=== PATIENT | female | born 1990 | race Caucasian/White ===

== ENCOUNTER 2016-11-08 11:02 | Day surgery (SDC) | payer OTHER ==
[~2016-11-08] VITALS: Ht 170.2 cm; Wt 106.5 kg
[~2016-11-08 11:02] MED LIST: 0.9% Sodium Chloride 1,000 ML IV PRN; CLON0.2T PO; DIAM PO; ESCI5SOL PO; LEVO100T6 PO; NORE-101 PO; OMEP20CA11 PO; SACC250C PO; Sodium Chloride LOK Flush 10 mL Syringe IV PRN; fentaNYL-PF 50 mCg/mL 2 mL Inj IVPUSH PRN
[2016-11-08 11:54] VITALS: BP 130/95; PULSE 85; RESP 14; O2SAT 100
--- NOTE | 2016-11-08 12:48 | PCM.ENDEGD ---
EGD Date of Service: Nov 08, 2016 Physician Francisco Amaral MD Indication for Procedure Abdominal pain and diarrhea Post Procedure Dx & Findings: Normal upper GI Procedure Esophagogastroduodenoscopy PROCEDURE IN DETAIL: The patient was placed in left lateral decubitus position. Bite block was placed. Scope lubricated, placed in posterior pharynx, passed through the cricopharyngeus and esophagus, slowly advanced the entire length of the gastric pouch, pylorus was identified, scope passed through the pylorus and descending portion of duodenum, withdrawn in the antrum, retroflexed upon itself for view of fundus and cardia. Scope was then withdrawn through the oropharynx. Esophagus was unremarkable with normal-appearing Z line. Stomach including cardia fundus body antrum and pylorus was also normal without any ulcers masses or erosions. Retroflexion was done. Stomach was easily inflatable and deflated using air. Duodenum appeared normal with normal villous structure and folds. Random biopsy 6 obtained of the distal and proximal duodenum for celiac disease. Impression Normal upper GI Recommendation Await biopsy for celiac disease. Presedation Assessment Risks and Benefits Informed consent was obtained from the patient after all risks and benefits including but not limited to drug reaction, infection, pain, bleeding, perforation, as well as alternatives were discussed. Patient monitoring Continuous pulse oximetry, cardiac monitoring, blood pressure monitoring, IV access, and oxygen at 2L per nasal cannula. Periprocedural Fentanyl: Fentanyl 175mcg Incrementally Midazolam: Midazolam 7mg Incrementally Complications There were no periprocedural complications identified. Post Procedure Plan Post Procedure Recommendations 1. Restrict activities today. 2. Resume normal activities in the morning. 3. Resume medications. 4. GERD behavioral modification: - Avoid fatty, acidic, spicy, large meals - Do not lie down after meals - Do not eat or drink anything for at least 2 1/2 hours before going to bed at night - Discontinue tobacco and alcohol - Decrease or avoid caffeine - Avoid chocolate and mints - Decrease weight - Avoid aspirin and non steroidal anti-inflammatory agents (NSAID) such as Aleve, Advil, Mobic, Naproxen, Ibuprofen, etc 5. Add proton pump inhibitor. Take 30 minutes before 1st meal of the day. 6. Patient informed of normal post procedure side effects as bloating, drowsiness, blood streaking in the stool 7. If gastric biopsy reveal H.pylori, continue with appropriate treatment 8. If small bowel biopsy reveals celiac, continue with appropriate treatment 9. Please don't hesitate to call me with any questions Francisco Amaral MD Nov 08, 2016 12:48
--- NOTE | 2016-11-08 13:07 | PCM.ENDCOL ---
Colonoscopy Date of Service: Nov 08, 2016 Physician Francisco Amaral MD Indication for Procedure Diarrhea abdominal pain Post Procedure Dx & Findings: Hemorrhoids polyp Procedure Colonoscopy Prep adequate Withdrawal 9 minutes PROCEDURE IN DETAIL: After unremarkable rectal examination Olympus video colonoscope was inserted patient's anal canal and advanced to the cecum. Landmarks were identified including the ileocecal valve and appendiceal orifice. Scope further advanced to the terminal ileum which showed normal villous structures without any ulcers or masses. We advanced 8 cm. The mucosa of the cecum, ascending, transverse, descending, sigmoid, rectal mucosa lined with whitish, pink, smooth, glistening, normal-appearing mucosa, normal fine branching, underlying vascularity, normal haustra. The patient tolerated procedure and was transported to observation area. Random biopsies were obtained from the cecum to the rectum using cold forceps. In the sigmoid colon, there was a 1 mm polyp which was resected completely using cold forceps. In the rectum retroflexion was done which showed mild hemorrhoids. Anal canal was inspected carefully and the way out and hemorrhoids noted. Impression Normal TI Normal colon Polyp status post complete removal Hemorrhoids Recommendation Repeat colonoscopy in 5 years Presedation Assessment Risks and Benefits Informed consent was obtained from the patient after all risks and benefits including but not limited to drug reaction, infection, pain, bleeding, perforation, as well as alternatives were discussed. Patient monitoring Continuous pulse oximetry, cardiac monitoring, blood pressure monitoring, IV access, and oxygen at 2L per nasal cannula. Periprocedural Fentanyl: Fentanyl 25mcg Midazolam: Midazolam 3mg Incrementally Complications There were no periprocedural complications identified. Post Procedure Plan Post Procedure Recommendations 1. Restrict activities today. 2. Resume normal activities in the morning. 3. Resume medications. 4. Patient informed of normal post procedure side effects as bloating, drowsiness, blood streaking in the stool. 5. average risk CRCS. If colon polyps come back as: -Hyperplastic- can repeat colonoscopy in 10 years -Tubular adenoma- repeat colonoscopy in 5 years -Tubulovillous/villous adenoma- repeat colonoscopy in 3 years -If any dysplasia- return to clinic as soon as possible 6. Please don't hesitate to call me with any questions. Francisco Amaral MD Nov 08, 2016 13:07
[2016-11-08 13:09] VITALS: BP 148/84; PULSE 94; RESP 14; O2SAT 100
[2016-11-08 13:21] VITALS: BP 137/67; PULSE 93; RESP 14; O2SAT 99
[2016-11-08 13:26] VITALS: BP 127/92; PULSE 97; RESP 16; O2SAT 100
--- NOTE | 2016-11-09 12:16 | PATH ---
SURGICAL PATHOLOGY Attending Physician:Francisco Amaral M.D. CASE STATUS: Signed Out PATIENT NAME: MILAGROS HARRISON PID: [id number] : 1990 DATE COLLECTED:11/08/2016 20:31 SPECIMEN: 1: Duodenum, Biopsy 2: Colon, Biopsy 3: Colon, Biopsy CLINICAL HISTORY: 1. DUODENAL BIOPSY 2. RANDOM COLON BIOPSIES 3. SIGMOID COLON POLYP FINAL DIAGNOSIS: 1. Duodenal Biopsy: Changes consistent with chronic duodenitis with focal areas of foveolar metaplasia. Negative for evidence of celiac disease. Negative for dysplasia and malignancy. 2. Random Colon Biopsies: Fragments of normal appearing colon mucosa with multifocal areas of mucosal lymphoid hyperplasia. Negative for significant architectural distortion. Negative for significant inflammation, dysplasia and malignancy. 3. Sigmoid Colon Polyp: Hyperplastic polyp. ICD10 K63.5 GROSS DESCRIPTION: The specimen is received in three formalin filled containers labeled with the patient's name. 1. The specimen is sublabeled "duodenal" and consists of 3 portions of tissue which aggregate to 0.3 x 0.3 x 0.2 CM. The specimen is entirely submitted in cassette 1A. 2. The specimen is sublabeled "random colon" and consists of multiple portions of tissue which aggregate to 0.5 x 0.5 x 0.3 CM. The specimen is entirely submitted in cassette 2A. 3. The specimen is sublabeled "sigmoid colon polyp" and consists of a 0.5 x 0.3 x 0.2 CM portion of tissue which is entirely submitted in cassette 3A. 11/08/2016 [facility] ICD-9 CODES: CPT CODES: 1: 72657 2: 91432 3: 56810 Electronically Signed Out Kev Ball MD [facility] [address], [place] [address] Technical component performed at [facility], [facility] [address], [place], [address]
[2017-02-22] MEDS ORDERED: OMEP20CA11 PO (15:07)
[2017-02-22] MEDS ORDERED: LEVO100T6 PO (15:07)
[2017-02-22] MEDS ORDERED: NORE-101 PO (15:07)
[2017-02-22] MEDS ORDERED: DIAM PO (15:07)
[2017-02-22] MEDS ORDERED: CHOL200025 PO (15:07)
== END 2016-11-08 23:59 | disposition home or self-care (01) ==
LOC: END 11:02
PROVIDERS: ATTEND Internal Medicine
DX: K63.5 Polyp of colon (principal); R19.7 Diarrhea, unspecified; R10.9 Unspecified abdominal pain; K64.9 Unspecified hemorrhoids; K29.80 Duodenitis without bleeding; E89.0 Postprocedural hypothyroidism; G93.2 Benign intracranial hypertension
CPT/HCPCS: 43239; 45380; 88305; 99153; G0500; J2250; J7030

== ENCOUNTER 2017-02-24 06:18 | Day surgery (SDC) | payer OTHER ==
[~2017-02-24] VITALS: Ht 170.2 cm; Wt 110.4 kg
[2017-02-24] VITALS (12 sets, daily range): BP systolic 135–152; BP diastolic 81–100; PULSE 72–105; RESP 16–37; O2SAT 97–100
[~2017-02-24 06:18] MED LIST changes: -0.9% Sodium Chloride 1,000 ML IV PRN; +CHOL200025 PO; -CLON0.2T PO; -ESCI5SOL PO; -SACC250C PO; -Sodium Chloride LOK Flush 10 mL Syringe IV PRN; -fentaNYL-PF 50 mCg/mL 2 mL Inj IVPUSH PRN
[2017-02-24] MEDS ORDERED: fentaNYL-PF 50 mCg/mL 2 mL Inj ONE (06:19)
[2017-02-24] MEDS ORDERED: Glycopyrrolate 0.2 MG/ML 1mL Inj ONE (06:19)
[2017-02-24] MEDS ORDERED: Dexamethasone 4 mg/mL Inj ONE (06:19)
[2017-02-24] MEDS ORDERED: Neostigmine 1 mg/mL 10 mL Inj ONE (06:19)
[2017-02-24] MEDS ORDERED: Propofol 10,000 mCg/mL 20 mL Inj ONE (06:19)
[2017-02-24] MEDS ORDERED: Ondansetron 2 mg/mL 2 mL Inj ONE (06:19)
[2017-02-24] MEDS ORDERED: Rocuronium 10 mg/mL 5 mL Inj ONE (06:19)
[2017-02-24] MEDS: Lactated Ringer's 1,000 ML IV SCH ×4 (06:30→11:34)
--- NOTE | 2017-02-24 07:07 | PCM.HPANE ---
Patient Data Surgeon Admitting Provider: Attending Provider:Dawit West MD Primary Care Physician:Desi Rose DO Other Provider:Kapil Burns Anesthesia Reason for Visit Symptomatic Cholelithiasis Ht/WT & BMI Height (Feet): 5 Height (Inches): 7 Weight (Kilograms): 110.4 Body Mass Index 38.00 Allergies Coded Allergies: ibuprofen (Verified Allergy, Unknown, gi distress, 02/22/17) Uncoded Allergies: LACTOSE INTOLERANT (Allergy, Unknown, 02/22/17) Past Anesthesia History Anesthesia History: Denies:: Abnormal Airway, Anesthesia Reactions, Difficult Intubation, Fam Anesthesia Reaction, Fam Malignant Hypertherm, Malignant Hyperthermia Diabetes History Hx Diabetes?: No MRSA MRSA: No Medications Hypertension Medication: No Home Meds Incl Beta Tricia: No Reported Medications Cholecalciferol (Vitamin D3) (Vitamin D3)2,000 Unit Tablet2,000 Unit PO DAILY 02/22/17 Omeprazole 20 Mg Capsule.dr20 Mg PO DAILY Ref 0 02/22/17 Noreth A-Et Estra/Fe Fumarate (Loestrin Fe 1.5-30 Tablet)1 Each Tablet1 Each PO DAILY #1 PKG Ref 0 02/22/17 Levothyroxine 100 Mcg Virxio265 Mcg PO DAILY For Thyroid Replacement Ref 0 02/22/17 Acetazolamide ER (Diamox Sequels)500 Mg Pvzye447 Mg PO BID 02/22/17 Discontinued Reported Medications Levothyroxine 100 Mcg [id number] Mcg PO DAILY For Thyroid Replacement Ref 0 11/05/16 Acetazolamide ER (Diamox Sequels)500 Mg Thcez712 Mg PO BID 11/05/16 Noreth A-Et Estra/Fe Fumarate (Loestrin Fe 1.5-30 Tablet)1 Each Tablet1 Each PO DAILY #1 PKG Ref 0 06/01/14 History History of ENT Problems?: Yes HEENT History: Denies:: Abnormal Airway Cataracts Difficult Intubation Dysphagia Glaucoma Hearing Problem Sinus Problem TMJ Denture Type: None Teeth Condition: Within Normal Limits Other HEENT Pertinent History: pt has visual problems with loss of vision occasionally related to her pseudotumor cerebri-/headaches Hx of Heart Problems?: No Cardiovascular History: Denies:: AICD Abdominal Aortic Aneurism Atrial Fibrillation Congestive Heart Failure Coronary Artery Disease Edema Heart Murmur Hypertension Irregular Heartbeat Pacemaker Hx of Respiratory Problem?: No Respiratory History: Positive for:: Dyspnea (EPISODES OF SOB/CHIKING FEELING R /T GOITER) Denies:: Asthma COPD Emphysema Oxygen Administration Pneumonia Tuberculosis Use of C-PAP Machine Use of Inhalers / NEBS Hx Neurologic Problems?: Yes Neurological History: Positive for:: Headaches (related to pseudotumor- not even weekly) Denies:: CVA Multiple Sclerosis Parkinson's Disease Seizures Other Neurological Pertinent: benign intracranial hypertension, pseudotumor cerebri Hx of GI Problems?: Yes Hx of Problems?: No Genitourinary History: Denies:: Kidney Stones Urinary Tract Infection (UTI occasional, not current or chronic) Female Hx: Denies:: Currently Problems with Breasts? Skin History: Denies:: History Skin Disorders? Pressure Ulcers Hx Musculoskeletal Problems?: Yes Musculoskeletal History: Positive for:: Back Injury (chronic back) Denies:: Fibromyalgia Musculoskeletal Trauma Myasthenia Gravis Osteoarthritis Rheumatoid Arthritis Systemic Lupus Hx of Psycho/Social Problems?: Yes Psycho Social History: Positive for:: Anxiety (PTSD) Hx Depression Hx Surgeries?: Yes (thyroidectomy) Hx Any Other Health Problems?: Yes Other History: Positive for:: Thyroid Disease Denies:: Cancer Endocrine Disease Hospitalization History Blood Transfusions: Positive for:: Accept Blood Products? Denies:: Blood Transfusions Hx Diabetes: No Hx Alcohol Use: YesAlcoholic Drinks Per Day: one to two times yearlyHx Substance Use: No Smoking Status: Never Smoker Have You Smoked inLast 12 mo: No Stop/Bang S-Snoring: Do You Snore Loudly: No T-Tired: feel tired, fatigued: No O-Obsered: Observed not breath: No P-Blood Pressure: treated: No B- Body Mass Index > 35 kg/m2: Yes A- Age over 50: No N- Neck Large Circumference: No G- Gender Male: No GENESIS Total Score: 1 Risk Assessment Category Category 1A: Patient has history of documented sleep apnea, and HAS NOT received any narcotic, sedative or anesthesia administration during this stay. Category 1B: Patient has history of documented sleep apnea, and HAS received any narcotic , sedative or anesthesia administration during this stay Category 2: Patient has SUSPECTED Obstructive Sleep Apnea, and HAS received any narcotic , sedative or anesthesia administration during this stay. Category 3: Patient has SUSPECTED Obstructive Sleep Apnea and HAS NOT received narcotic, sedative or anesthesia administration during this stay. Category 4: Outpatient in Procedural Areas with known sleep apnea or who screen positive for High Risk via the STOP/BANG questionnaire. Exam Exam Vital Signs Vital Signs Date Time Temp Pulse Resp B/P Pulse Ox O2 Delivery O2 Flow Rate FiO2 02/24/17 06:43 36.3 83 20 135/82 97 Room Air General Appearance: Alert, Oriented X3, Cooperative, No Acute Distress HEENT/AIRWAY: MP 2, Neck Movement (from), Mouth Opening Lungs: Clear to Auscultation, Normal Air Movement Heart: Exam Unremarkable Meds/Labs/Diagnostics Admission Meds Current Medications Lactated Ringer's (Lr) 1,000 ml @ 120 mls/hr Q8H20M IV Last administered on 06:30; Start 02/24/17 at 05:00; Stop 02/24/17 at 13:19 Gabapentin (Neurontin) 600 mg PREOP ONCE PO Last administered on 02/24/17 06: 58; Start 02/24/17 at 06:00; Stop 02/24/17 at 06:01; Status DC Scopolamine (Transderm-Scop Patch) 1.5 mg ONCE ONCE TOPICAL Last administered on 02/24/17 06:58; Start 02/24/17 at 05:00; Stop 02/24/17 at 05:01; Status DC Acetaminophen (Tylenol) 650 mg PREOP ONCE PO Last administered on 02/24/17 06 :58; Start 02/24/17 at 06:00; Stop 02/24/17 at 06:01; Status DC Plan Impression Patient chart reviewed, patient interviewed and anesthestic plan with risks, benefits, and alternatives discussed, and informed consent obtained. ASA Physical Status: ASA2 Mod Systemic Disease Anesthetic Plan: GA Bene/Risks/Altern/Consents: Yes HP Complete Prior to Induction: Yes Aleks Chaves MD February 24, 2017 07:07
[2017-02-24] MEDS ORDERED: LORazepam 1 mg Tablet PO PRN (07:10)
[2017-02-24] MEDS ORDERED: Lactated Ringer's 500 ML IV PRN (08:14)
[2017-02-24] MEDS ORDERED: Atropine 0.4 mg/mL Inj IVPUSH PRN (08:15)
[2017-02-24] MEDS ORDERED: HYDROmorphone 1 mg/mL Inj IVPUSH PRN (08:15)
[2017-02-24] MEDS ORDERED: EPHEDrine Sulfate 50 mg/mL Inj IVPUSH PRN (08:15)
[2017-02-24] MEDS ORDERED: Ondansetron 2 mg/mL 2 mL Inj IVPUSH PRN (08:15)
[2017-02-24] MEDS ORDERED: Phenylephrine 10,000 mCg/mL Inj IVPUSH PRN (08:15)
[2017-02-24] MEDS ORDERED: hydrALAZINE 20 mg/mL Inj IVPUSH PRN (08:15)
[2017-02-24] MEDS ORDERED: Labetalol 5 mg/mL 4 mL Inj IV PRN (08:15)
[2017-02-24] MEDS ORDERED: Dexamethasone 4 mg/mL Inj IVPUSH PRN (08:15)
[2017-02-24] MEDS ORDERED: Bupivacaine-MPF 0.25%/EPI 30 mL Inj INFILTRATE ONE (08:26)
[2017-02-24] MEDS ORDERED: oxyCODONE-Acetamin 5-325 mg Tablet PO PRN (09:05)
[2017-02-24] MEDS: fentaNYL-PF 50 mCg/mL 2 mL Inj IVPUSH PRN ×2 (09:13→09:28)
--- NOTE | 2017-02-24 09:34 | PCM.ANEP1 ---
Post Anesthesia Phase 1 PACU Phase 1 Assessment Vital Signs Vital Signs Date Time Temp Pulse Resp B/P Pulse Ox O2 Delivery O2 Flow Rate FiO2 02/24/17 09:25 81 28 147/87 99 BLOW BY 8 02/24/17 09:20 82 27 145/86 98 BLOW BY 8 02/24/17 09:15 36.7 96 18 141/81 100 BLOW BY 8 02/24/17 09:10 101 37 143/100 98 Simple Mask 8 02/24/17 09:05 36.6 105 22 152/98 97 Simple Mask 8 02/24/17 06:43 36.3 83 20 135/82 97 Room Air Anesthetic Administered: GA Level of Alertness: Awake, talking [facility] with Equal Strength: Yes Pain: No Nausea or Vomiting: No Oxygen Delivery: Room Air Lungs: Clear to Auscultation, Normal Air Movement Complications: No Follow up Care: No Aleks Chaves MD February 24, 2017 09:34
--- NOTE | 2017-02-24 09:37 | OP ---
[address] [address] OPERATIVE REPORT PATIENT: MILAGROS HARRISON : 1990 MR#: [id number] ADMIT: 02/24/2017 JOB ID: [id number] DATE OF SURGERY: 02/24/2017 ANESTHESIA: General. PREOPERATIVE DIAGNOSIS(ES): Symptomatic cholelithiasis. POSTOPERATIVE DIAGNOSIS(ES): Symptomatic cholelithiasis. OPERATIVE PROCEDURE: Laparoscopic cholecystectomy. SURGEON: Dr. Dawit West OVEN ROASTER: Edgard Lopez PA-C (the executive staff assistant was required for the safe and timely completion of the case). COMPLICATIONS: None. ESTIMATED BLOOD LOSS: Less than 5 mL. CONDITION: Satisfactory. SPECIMEN: Gallbladder. FINDINGS: The gallbladder appeared unremarkable. At one point, it was entered with spillage of less than 2 cc of bile. No stones were spilled. INDICATIONS/SIGNIFICANT HISTORY: The patient is a 27-year-old female who has been having occasional abdominal pain that is postprandial. She has been worked up for this as well as diarrhea by a client solutions director. An ultrasound was obtained which showed cholelithiasis. A HIDA also showed decreased ejection fraction of 8.5%. She was referred to me. After discussion, elected undergo cholecystectomy understanding that this may exacerbate her diarrhea. OPERATIVE TECHNIQUE: The patient was taken to the operating room and placed in the supine position. General anesthesia was administered. The abdomen was prepped and draped in a standard surgical fashion. A procedural pause was performed. Entry was gained into the abdomen through a supraumbilical incision using the 10 mm Optiview trocar. Pneumoperitoneum was achieved without complication. Local anesthetic was injected, followed by insertion of 5 mm ports in the subxiphoid as well as two in the right upper quadrant. Gallbladder was grasped and retracted cephalad and dissection begun to identify the cystic duct and the cystic artery. There are actually two cystic arteries, a very small one running under the cystic node and then a larger posterior one running off the right hepatic branch. Critical view of safety was achieved. Each artery was clipped with a single clip and the duct was clipped with three clips. The duct was taken sharply and arteries with cautery. The remainder of the dissection of the gallbladder off the cystic plate was then completed. During the initial dissection, I had entered the gallbladder with very minimal spillage of bile but no stones. Gallbladder was placed in an EndoCatch bag, removed through the umbilical port site. The fascia there was closed with a 0 PDS suture using a laparoscopic suture passer. The surgical bed was inspected and found to be completely dry. This was irrigated and aspirated. The lateral ports were then removed under direct visualization followed by releasing pneumoperitoneum and removal of the remaining port. Skin was closed using 4-0 Monocryl. The entire procedure was well tolerated without complication.
--- NOTE | 2017-02-25 15:06 | PATH ---
SURGICAL PATHOLOGY Attending Physician:Dawit West MD CASE STATUS: Signed Out PATIENT NAME: MILAGROS HARRISON PID: [id number] : 1990 DATE COLLECTED:02/24/2017 16:35 SPECIMEN: Gallbladder CLINICAL HISTORY: SYMPTOMATIC CHOLELITHIASIS 1. GALLBLADDER FINAL DIAGNOSIS: 1.GALLBLADDER: CHOLELITHIASIS WITH ASSOCIATED CHRONIC CHOLECYSTITIS AND CHOLESTEROLOSIS. ICD10 CODE K80.66 GROSS DESCRIPTION: The specimen is received in one formalin filled container labeled with the patient's name, sublabeled "gallbladder" and consists of an intact 8.0 x 4.0 x 3.0 CM gallbladder. The serosa is smooth. The wall is 0.2-0.3 CM in thickness. The mucosa is a yellow-green in color. The lumen contains a light green mucoid material and approximately 40+ yellow michel multifaceted calculi which range in size from 0.1-0.6 CM in greatest dimension. 5 containers sales representative sections are submitted in one cassette. 02/24/2017 DAC MICRO DESCRIPTION: See diagnosis. ICD-9 CODES: CPT CODES: 1: 98558 Electronically Signed Out Kev Ball MD [facility] [address], [place] [address] Technical component performed at [facility], [facility] [address], [place], [address]
== END 2017-02-24 23:59 | disposition home or self-care (01) ==
LOC: SAS 06:18
PROVIDERS: ATTEND General Practice
DX: K80.10 Calculus of gallbladder with chronic cholecystitis without obstruction (principal); K21.9 Gastro-esophageal reflux disease without esophagitis; E89.0 Postprocedural hypothyroidism; G93.2 Benign intracranial hypertension; F43.10 Post-traumatic stress disorder, unspecified; F32.9 Major depressive disorder, single episode, unspecified
CPT/HCPCS: 47562; 88304; J1100; J1170; J2405; J2710; J3010; J7120

== ENCOUNTER 2017-05-06 23:58 | Emergency (ER) | payer OTHER ==
[~2017-05-06] VITALS: Ht 170.2 cm; Wt 106.8 kg
[2017-05-07 00:01] VITALS: BP 163/119; PULSE 104; RESP 18; O2SAT 97
--- NOTE | 2017-05-07 03:37 | ED.REPORT ---
HPI-Headache Date of Service May 07, 2017 ED Provider: Mauricio Tay MD Pt is a 27 year old female who had a Lumbar puncture on 05/05/2017 for pseudotumor cerebri presenting to the ED complaining of a headache onset after the LP. She had 22 CCs of fluid removed, and had an opening pressure at 23. The pain is relieved by laying down. She has been drinking caffeine and taking Tylenol with no relief. Nursing Notes Stated Complaint: HEADACHE Chief Complaint: Headache Nursing Notes Reviewed: Yes Allergies: Uncoded Allergies: LACTOSE INTOLERANT (Adverse Reaction, Intermediate, 05/05/17) Scheduled Acetazolamide ER (Diamox Sequels) 500 Mg Capcr 500 MG PO BID Cholecalciferol (Vitamin D3) (Vitamin D3) 2,000 Unit Tablet 2,000 UNIT PO DAILY Levothyroxine (Levothyroxine) 100 Mcg Tablet 100 MCG PO DAILY Noreth A-Et Estra/Fe Fumarate (Loestrin Fe 1.5-30 Tablet) 1 Each Tablet 1 EACH PO DAILY Omeprazole (Omeprazole) 20 Mg Capsule.dr 20 MG PO DAILY General Time Seen by MD: 03:19 Chief Complaint Headache Hx Obtained From: Patient Arrived By: Walk-in Sudden in Onset?: Yes Onset Occurred: Yesterday Symptom Duration: Since onset Location: : Generalized Quality: Painful Severity: Current: Severe Severity: Maximum: Severe Recent Healthcare: No recent hospitalization, Recent doctor visit Similar Sx Previous: No Past Medical History Past Medical History Pseudotumor cerebri, anxiety, PTSD, depression, chronic back pain Past Surgical History Thyroidectomy Reports: Cholecystectomy Smoking History Never Smoker Ambulatory Status Independent Review of Systems Constitutional: Denies: Fever, Weakness - generalized GI: Denies: Abdominal pain, Vomiting Neurologic: Reports: Headache Complete sys rev & neg: except as marked. Physical Exam Initial Vital Signs Vital Signs (First) Date Time Temp Pulse Resp B/P Pulse Ox O2 Delivery O2 Flow Rate FiO2 05/07/17 00:01 36.6 104 18 163/119 97 Room Air Initial VS: Reviewed, Vital signs abnormal ENT: Mucous membranes moist, Conjunctiva normal, No scleral icterus Respiratory: Breath sounds normal, Clear to auscultation, No respiratory distress Cardiovascular: Regular rate & rhythm, Heart sounds normal, Intact distal pulses Abdomen / GI: Soft, Non-tender, No guarding, No rebound, No distention Extremities: Vascular intact, Neuro intact, No swelling, No tenderness Skin: Warm, Dry, No cyanosis Psychiatric: Mood/affect normal, Behavior normal, Normal thought content General/Constitutional: Awake, Alert, No acute distress, Well appearing Head / Eyes: Atraumatic, Normocephalic, PERRL, EOMI Neck: Atraumatic, Supple, No meningismus, Full range of motion Neurologic: Oriented X3, Speech NL, No motor deficits, No sensory deficits, CN II - XII intact, Cerebellar NL Re-Eval/Medical Decision Med Decision/Clinical Course 27-year-old female who had a lumbar puncture 3 days ago for pseudotumor cerebri. 21 mL of CSF were removed. She subsequently had onset of positional headache. Anesthesiology was consulted and they did a blood patch. She is being discharged home in improved condition. She still has some headache with sitting but was reassured that this will gradually go away as her CSF reestablishes. Re-Evaluation/Progress : Time of Eval: 05:56 )( Patient Status: Condition improved Re-Evaluation/Progress Note: Discussed plan for discharge. Pt understands and agrees. Consultation #1: Referral / Consult Name: Willy Montague MD Consulted With: Anesthesia Call Returned at: 03:49 Beverage Server: Will see patient, Agrees with plan Note: Will come in and perform blood patch. Consultation #2: Referral / Consult Name: Willy Montague MD Consulted With: Anesthesia Call Returned at: 05:07 Note: Have the pt lay supine until 0545 and then discharge. Counseled Regarding: Diagnosis, Lab results, Need for follow-up, When/why to return to ED Discharge & Departure Impression: Primary Impression: Spinal headache Disposition: Home Discharge Condition All VS Reviewed: Yes Condition: Improved Patient Instructions: Epidural Blood Patch (DC) Additional Instructions: Please see blood patch instructions. Return as needed for recurrent symptoms. Referrals: Desi Rose DO (PCP) Nola Attestation Portions of this note were transcribed by Rosa Maria Lopez. I, Dr. Tay personally performed the history, physical exam and medical decision-making; I reviewed and confirmed the accuracy of the information in the transcribed note. Signed by: Nola Frost, 05/07/2017 at 0556. copies to: Desi Rose Howard L MD May 07, 2017 03:37 ROSA MARIA LOPEZ May 07, 2017 03:47
--- NOTE | 2017-05-07 05:41 | PROCED ---
[address] [address] PROCEDURE NOTE PATIENT: MILAGROS HARRISON : 1990 MR#: [id number] ADMIT: 05/06/2017 JOB ID: [id number] DATE OF SERVICE: POSTOPERATIVE DIAGNOSIS(ES): PREOPERATIVE DIAGNOSIS(ES): PROCEDURE: Epidural blood patch. PRE-PROCEDURE DIAGNOSIS: Post dural puncture headache. POSTPROCEDURE DIAGNOSIS: Post dural puncture headache, status post epidural blood patch. SURGEON: Willy Montague MD. BRIEF HISTORY: The patient is a 19-year-old female, who underwent a therapeutic spinal tap in interventional radiology on May 05, 2017 for pseudotumor cerebri. Per her report she had 22 cc of CSF drained for symptoms of pseudotumor. Approximately 1 hour after the procedure, the patient noticed marked positional headache, significantly worse when sitting up and nearly relieved when lying in the supine position. It was associated with pain between her shoulder blades radiating up her neck and around over to the top of her forehead. She has felt slightly nauseated, denies any vision problems except which she has had related to the pseudotumor. Over the past 24 plus hours, she has been treating herself with hydration and caffeine without improvement of symptoms and she presented to the ER this evening due to the severity of the headaches. She notes that she has headaches are much more severe than her normal pseudotumor headaches and definitely positional in nature. She had no obvious neurologic deficits on examination. The etiology of a post dural puncture headache was discussed with the patient including difficulties occasionally diagnosing it in her population given the chronic nature of her headaches. Her symptoms appear to be consistent with a post dural puncture headache given the proximity to the time of her spinal tap, and I offered the patient an epidural blood patch. We discussed the procedure in detail including the risks and benefits of proceeding and the possibility that the procedure would not be beneficial in resolving her symptoms. The patient understands this and wishes to proceed with the procedure. Consent was signed. PROCEDURE IN DETAIL: The patient was placed in a sitting position with the assistance of the ED RN. ChloraPrep was used on her back. Using a hat, mask and gloves, loss of resistance technique was used with a standard epidural kit. Loss resistance was a 6.5 cm to saline. Once loss of resistance was obtained ED nurse sterilely prepped with ChloraPrep, her left AC and using sterile gloves, hat mask and a sterile drape, withdrew 30 cc of blood. The sterile syringe was handed to me and I proceeded to slowly inject the patient's blood into the epidural space. At approximately 5 cc she noticed some slight pressure in her back. This was tolerable up until about 15 cc, at which point the patient started noting marked increase in the pressure with injection. At 18 cc the patient states that the pressure became too significant and we stopped injecting at that time. The epidural needle was removed from the patient's back. She was placed in a supine position and she is to rest in this position for the next hour prior to discharge. The patient was discussed about the potential outcomes of epidural blood patch and that if it is not successful, the possibility of the wrong diagnosis is a potential. Additionally, we discussed that she may require a second procedure in the future. The patient will be observed in the emergency department for the next hour prior to discharge.
[2017-05-07 06:04] VITALS: BP 146/100; PULSE 90; RESP 18; O2SAT 98
== END 2017-05-07 06:33 | disposition home or self-care (01) ==
LOC: SED 23:58
DX: G97.1 Other reaction to spinal and lumbar puncture (principal); Z98.890 Other specified postprocedural states